=== PATIENT | male | born 1980 | race Caucasian/White ===

== ENCOUNTER 2016-10-18 08:43 | Emergency (ER) | payer OTHER ==
[2016-10-18] MEDS ORDERED: DEXAMETHASONE SOD PHOS INJ 10 MG/1 ML VIAL IM ONE (08:46)
[2016-10-18] MEDS ORDERED: ONDANSETRON 4 MG TAB.RAPDIS PO ONE (08:46)
[2016-10-18] MEDS ORDERED: MORPHINE SULFATE 10 MG/ML INJ IM ONE (08:46)
--- NOTE | 2016-10-18 10:14 | RADIOLOGY REPORT (SQ) ---
EXAM DESCRIPTION: SACROILIAC JOINTS; SACRUM AND COCCYX; L SPINE WHOLE COMPLETED DATE/TIME: 10/18/2016 9:52 am REASON FOR STUDY: back pain COMPARISON: None. FINDINGS: Five view lumbosacral spine: Includes bilateral obliques. Normal study without fracture or malalignment. Three views sacrum and coccyx: No sacral fracture. Maintained SI joints. Angulated coccyx looks ch ronic. No gross fracture or segment displacement. Three views SI joints: Symmetric maintained SI joints without ankylosis or erosions or abnormal wide virgil. Symphysis pubis intact. IMPRESSION: 1. No acute radiographic abnormality suggested in the lumbosacral spine, sacrum or coccy x or bilateral SI joints. Findings as above. TECHNICAL DOCUMENTATION: JOB ID: [id number]
--- NOTE | 2016-10-18 10:26 | ER Document Report ---
ED General - General Chief Complaint: Back Pain Stated Complaint: LOWER BACK PAIN Time Seen by Provider: 10/18/16 08:46 - HPI Patient complains to provider of: Lower back pain Notes: Patient coming in for evaluation of lower back pain. Patient injured his back while exercising lifting makes. Patient denies any pain going down his leg however is ablating with a cane. Patient states difficulty in extending and flexing his back. Denies any numbness or tingling denies any saddle anesthesias denies any urinary or bowel incontinence. Patient looks to be uncomfortable upon my evaluation. - Related Data Allergies/Adverse Reactions: No Known Allergies Allergy (Unverified 10/18/16 09:15) Past Medical History - Social History Smoking Status: Never Smoker Chew tobacco use (# tins/day): No Frequency of alcohol use: None Drug Abuse: None Past Surgical History: Reports: Hx Appendectomy - Immunizations Hx Diphtheria, Pertussis, Tetanus Vaccination: Yes Review of Systems - Review of Systems Constitutional: No symptoms reported EENT: No symptoms reported Cardiovascular: No symptoms reported Respiratory: No symptoms reported Gastrointestinal: No symptoms reported Genitourinary: No symptoms reported Male Genitourinary: No symptoms reported Musculoskeletal: Back pain Skin: No symptoms reported Hematologic/Lymphatic: No symptoms reported Neurological/Psychological: No symptoms reported -: Yes All other systems reviewed and negative Physical Exam - Vital signs Vitals: Temp Pulse Resp BP Pulse Ox 97.4 F 58 L 18 120/73 99 10/18/16 09:00 10/18/16 09:00 10/18/16 09:00 10/18/16 09:00 10/18/16 09:00 Interpretation: Normal - General General appearance: Appears well, Alert - HEENT Head: Normocephalic, Atraumatic Eyes: Normal Pupils: PERRL - Respiratory Respiratory status: No respiratory distress Chest status: Nontender Breath sounds: Normal Chest palpation: Normal - Cardiovascular Rhythm: Regular Heart sounds: Normal auscultation Murmur: No - Abdominal Inspection: Normal Distension: No distension Bowel sounds: Normal Tenderness: Nontender Organomegaly: No organomegaly - Back Back: Normal, Tender - Patient has tenderness of the right SI joint - Extremities General upper extremity: Normal inspection, Nontender, Normal color, Normal ROM , Normal temperature General lower extremity: Normal inspection, Nontender, Normal color, Normal ROM , Normal temperature. No: Normal weight bearing - Patient walks with limping gait using cane for assistance., Hallie's sign - Neurological Neuro grossly intact: Yes Cognition: Normal Orientation: AAOx4 [place] Coma Scale Eye Opening: Spontaneous [place] Coma Scale Verbal: Oriented [place] Coma Scale Motor: Obeys Commands [place] Coma Scale Total: 15 Speech: Normal Motor strength normal: LUE, RUE, LLE, RLE Sensory: Normal - Psychological Associated symptoms: Normal affect, Normal mood - Skin Skin Temperature: Warm Skin Moisture: Dry Skin Color: Normal Course - Re-evaluation Re-evalutation: 10/18/16 13:43 The patient presents with low back pain without signs of spinal cord compression , cauda equina syndrome, infection, aneurysm, or other serious etiology. The patient is neurologically intact. Given the extremely low risk of these diagnoses further testing and evaluation for these possibilities does not appear to be indicated at this time. The patient has been instructed to return if the symptoms worsen or change in any way. Patient coming in for evaluation of back pain. Patient's pain mostly located on the lumbar spine and the SI joints. Patient was given a IM shot of morphine with Zofran patient stated improvement with pain control patient then underwent osteopathic manipulation with resetting of the patient's pelvis with internal and external rotation of both hips against resistance. This also provided some relief of the patient's pain. More likely patient has a bad back sprain pain control was given for the patient. Patient also given a work note. Patient encouraged follow-up primary care physicians. - Vital Signs Vital signs: Temp Pulse Resp BP Pulse Ox 97.9 F 59 L 16 112/78 100 10/18/16 10:38 10/18/16 10:38 10/18/16 10:38 10/18/16 10:38 10/18/16 10:38 Discharge - Discharge Clinical Impression: Back sprain Back pain Qualifiers: Back pain location: low back pain Chronicity: unspecified Back pain laterality : unspecified Sciatica presence: without sciatica Qualified Code(s): M54.5 - Low back pain Condition: Good Disposition: HOME, SELF-CARE Instructions: Ice Packs ([facility]), Low Back Pain ([facility]), Oral Narcotic Medication ( [facility]) Additional Instructions: Follow-up with your primary care physician. Take medications as prescribed. Return to the ER if symptoms worsen. Prescriptions: Carisoprodol [Soma] 350 mg PO TID #30 tablet Lidocaine [Lidoderm 5% (700 mg) Transdermal Patch] 1 patch TP DAILY #30 adh..patch Methylprednisolone [Medrol Dosepack (4 mg/Tab) 21 Tab/Dosepak] 4 mg PO ASDIR PRN #21 tab.ds.pk PRN Reason: Oxycodone HCl 5 mg PO Q6 #30 tablet Forms: Special Work Note, Return to Work
[2016-10-18] MEDS ORDERED: LIDOCAINE 5% (700 MG) TRANSDERMAL ADH..PATCH TP ONE (10:28)
--- NOTE | 2016-10-18 10:34 | ER Document Report ---
Doctor's Note Notes: 10/18/16 10:[address] Nixon in attempts to perform osteopathic manipulation on patient including sacral release maneuvers, patient did report moderate relief of pain with these maneuvers combined with medications that were given, he is neurovascularly intact, denies bowel or bladder dysfunction, no saddle anesthesia
[2016-10-18 10:39] VITALS: BP 112/78
== END 2016-10-18 10:38 | disposition home or self-care (01) ==
LOC: ER 08:43
DX: S33.5XXA Sprain of ligaments of lumbar spine, initial encounter (principal); X50.0XXA Overexertion from strenuous movement or load, initial encounter; Y93.B9 Activity, other involving muscle strengthening exercises
CPT/HCPCS: 99283; 96372; 72220; 72110; 72200; S0119; J2270; J1100

== ENCOUNTER 2019-01-16 16:18 | Emergency (ER) ==
[2019-01-16 16:27] VITALS: BP 151/95
== END 2019-01-16 17:10 | disposition left against medical advice (07) ==
LOC: ER 16:18
DX: Z53.21 Procedure and treatment not carried out due to patient leaving prior to being seen by health care provider (principal)

== ENCOUNTER → 2020-03-02 | Outpatient (CLI) | payer SELFPAY ==
[~2020-03-02] MED LIST: COVID-19 VACCINE (PFIZER)/PF 30 MCG/0.3 ML VIAL IM ONE; EPINEPHRINE INJ/PF 1 MG/1 ML AMPULE IM PRN
== END ==
LOC: EMPHEALTH 15:28
PROVIDERS: ATTEND Internal Medicine
DX: Z23 Encounter for immunization (principal)
CPT/HCPCS: 91300